=== PATIENT | male | born 1970 | race Caucasian/White ===

== ENCOUNTER → 2016-11-05 23:53 | Emergency (ER) | payer OTHER ==
[~2016-11-05 23:53] MED LIST: ADVIL PM PO; ASAB PO; ASABAYER PO; ASAEC PO; B-C POWDER PO; BRILINTA90 MG PO; C2 PO; C25 PO; C5 PO; CELEXA10 PO; CELEXA20 PO; COLCH6 PO; COREG6 PO; COUMADIN3 MG PO; DIL2TAB PO; DSS PO; ELIQUIS 5 MG TAB5 MG PO; IND25 PO; INDO50 PO; KLOR-CON M2020 MEQ PO; L40 PO; LEVAQUIN750 MG PO; LIPITOR40 PO; LOP25 PO; LOP50 PO; LUNESTA1 MG PO; MEDROLPAK4 PO; NICODERM C14 MG/24 H TOP; NICODERM C21 MG/241 TOP; NITROSTAT0.4 MG SL; NORCO1 TA1 PO; OXYCOD PO; PCET PO; PLAVIX PO; PRIN5 PO; PROAIR HFA INH; PROTONIX PO; REST15 PO; SPIRIVA INH; TYLENOL PM PO; VANTIN200 MG PO; ZOFRAN ODT4 MG PO
== END | disposition left against medical advice (07) ==
LOC: ER 23:53
DX: Z53.21 Procedure and treatment not carried out due to patient leaving prior to being seen by health care provider (principal)
CPT/HCPCS: 71020; 80048; 83735; 84484; 85025; 85610; 85730; 93005

== ENCOUNTER 2016-11-07 13:07 | Emergency (ER) | payer OTHER ==
[2016-11-07 14:03] LABS: BASOPHILS 0.6 %; BASOPHILS ABSOLUTE 0.04 10/3/uL (0.0-0.16); EOSINOPHILS 3.5 %; EOSINOPHILS ABSOLUTE 0.24 10/3/uL (0.0-0.53); ER CBC TAT 0 Hrs 05 Mins; HEMATOCRIT 44.5 % (40.0-51.0); HEMOGLOBIN 15.6 g/dL (13.6-17.8); IMMATURE GRANULOCYTES 0.1 %; IMMATURE GRANULOCYTES ABSOLUTE 0.01 10/3/uL (0.0-0.11); LYMPHOCYTES 38.2 %; LYMPHOCYTES ABSOLUTE 2.64 10/3/uL (0.67-4.30); MANUAL DIFF NO %; MEAN CORPUS HGB CONC 35.1 g/dL (32.0-36.0); MEAN CORPUSCULAR HEMOGLOB 32.7 pg (26.0-34.0); MEAN CORPUSCULAR VOLUME 93.3 fL (80-100); MEAN PLATELET VOLUME 8.9 fL (9.2-13.0); MONOCYTES 6.4 %; MONOCYTES ABSOLUTE 0.44 10/3/uL (0.21-1.20); NEUTROPHILS 51.2 %; NEUTROPHILS ABSOLUTE 3.55 10/3/uL (2.02-8.40); PLATELET COUNT 222 10/3/uL (150-400); RBC DISTRIBUTION WIDTH 12.3 % (12.0-16.0); RED CELL COUNT 4.77 10/6/uL (4.7-6.1); WHITE BLOOD CELLS 6.9 10/3/uL (4.5-10.5)
[2016-11-07 14:13] LABS: INTERNATIONAL NORMAL RATI 1.1 UNITS (-); PROTIME (NOT ORD) 13.7 SEC (12.0-14.5)
[2016-11-07 14:14] LABS: PARTIAL THROMBO TIME 28.8 SEC (22.5-37.2)
[2016-11-07 14:19] LABS: BUN (BLOOD UREA NITROGEN) 18 MG/DL (6-23); CHEST PAIN PROFILE TAT 0 Hrs 21 Mins; CHLORIDE, SERUM 106 MMOL/L (96-112); CREATININE 1.11 MG/DL (0.70-1.30); GFR AFRICAN AMERICAN 91 ML/MIN (>=60); GFR NON AFRICAN AMERICAN 79 ML/MIN (>=60); POTASSIUM, SERUM 4.5 MMOL/L (3.5-5.3); SODIUM, SERUM 141 MMOL/L (135-148); TROPONIN I <0.02 NG/ML (<0.05)
[2016-11-07 14:20] LABS: CO2 (CARBON DIOXIDE) 31 MMOL/L (24-34); GLUCOSE, SERUM 86 MG/DL (60-99)
== END 2016-11-07 17:57 | disposition home or self-care (01) ==
LOC: ER 13:07
PROVIDERS: Emergency Medicine
DX: R00.2 Palpitations (principal); I25.2 Old myocardial infarction; Z95.1 Presence of aortocoronary bypass graft; Z98.61 Coronary angioplasty status; Z88.5 Allergy status to narcotic agent
CPT/HCPCS: 71020; 80048; 83735; 84484; 85025; 85610; 85730; 93005; 93225; 99285